=== PATIENT | male | born 1955 | race Caucasian/White ===

== ENCOUNTER → 2016-09-10 | Outpatient (CLI) | payer MEDICAID ==
[2016-09-10 14:16] LABS: BASOPHILS % (AUTO) 0 % (0-2); EOSINOPHILS # (AUTO) 0.3 10^3uL; EOSINOPHILS % (AUTO) 3 % (0-4); LYMPHOCYTES # (AUTO) 2.1 X10^3; MEAN CORPUSCULAR HEMOGLOBIN 27.1 PG (26.0-34.0); MEAN CORPUSCULAR VOLUME 82 FL (80-100); MEAN PLATELET VOLUME 8.9 FL (6.0-9.5); MONOCYTES # (AUTO) 1.2 X10^3; MONOCYTES % (AUTO) 10 % (3-11); NEUTROPHILS # (AUTO) 8.5 X10^3; NEUTROPHILS % (AUTO) 70 % (51-67); PLATELET COUNT 406 10^3uL (150-450)
== END ==
LOC: LAB 13:53
PROVIDERS: ATTEND Internal Medicine Hematology & Oncology
DX: D64.9 Anemia, unspecified (principal); D83.9 Common variable immunodeficiency, unspecified
CPT/HCPCS: 36415; 85025

== ENCOUNTER → 2016-09-11 | Outpatient (CLI) | payer MEDICAID ==
[~2016-09-11] VITALS: Ht 177.8 cm; Wt 81.6 kg
[~2016-09-11] MED LIST: ACETAMINOPHEN 325 MG TAB (TYLENOL) PO ONE; DEXAMETHASONE 10 MG/ML (DECADRON) VIAL INJ SCH; HYDROCORTISONE 100 MG/2 ML (Solu-CORTEF) VIAL IV PRN; IMMUNE GLOBULIN GAMMA IV ONE; NS FLUSH 10 ML PRN IV; NS FLUSH 3 ML PRN IV; [UNRECOGNIZED DRUG - OTHER] IV ONE; diphenhydrAMINE 50 MG/ML INJ (BENADRYL) IV ONE; diphenhydrAMINE 50 MG/ML INJ (BENADRYL) IV PRN; methylPREDNISolone 125 MG (Solu-MEDROL) VIAL IV PRN
[2016-09-11 10:38] VITALS: BP 115/76
--- NOTE | 2016-09-11 11:37 | NUR ---
.Patient tolerating infusion well; see vital signs
== END ==
LOC: EUOP 09:52
PROVIDERS: ATTEND Family Medicine
DX: D64.9 Anemia, unspecified (principal); D83.9 Common variable immunodeficiency, unspecified
CPT/HCPCS: 96365; 96367; 96375; A9270; J1100; J1200; J1459; J1569; 36000

== ENCOUNTER → 2016-10-08 | Outpatient (CLI) | payer MEDICAID ==
[2016-10-08 15:39] LABS: BASOPHILS % (AUTO) 0 % (0-2); EOSINOPHILS # (AUTO) 0.3 10^3uL; EOSINOPHILS % (AUTO) 3 % (0-4); LYMPHOCYTES # (AUTO) 2.3 X10^3; MEAN CORPUSCULAR HEMOGLOBIN 27.1 PG (26.0-34.0); MEAN CORPUSCULAR HGB CONC 33.3 g/dL (31.0-37.0); MEAN CORPUSCULAR VOLUME 81 FL (80-100); MEAN PLATELET VOLUME 8.9 FL (6.0-9.5); MONOCYTES # (AUTO) 0.7 X10^3; MONOCYTES % (AUTO) 6 % (3-11); NEUTROPHILS # (AUTO) 8.1 X10^3; NEUTROPHILS % (AUTO) 71 % (51-67); PLATELET COUNT 472 10^3uL (150-450); WHITE BLOOD COUNT 11.39 10^3uL (4.0-11.0)
== END ==
LOC: LAB 15:24
PROVIDERS: ATTEND Internal Medicine Hematology & Oncology
DX: D64.9 Anemia, unspecified (principal); D83.9 Common variable immunodeficiency, unspecified
CPT/HCPCS: 36415; 85025

== ENCOUNTER 2016-10-09 13:01 | Outpatient (RCR) | payer MEDICAID ==
[~2016-10-09] VITALS: Ht 177.8 cm; Wt 81646.6 kg
--- NOTE | 2016-10-09 13:49 | NUR ---
Pt rescheduled for Wednesday at 11am.
[2016-10-12] VITALS (8 sets, daily range): BP systolic 111–134; BP diastolic 67–86
[2016-10-12] MEDS ORDERED: ACETAMINOPHEN 325 MG TAB (TYLENOL) PO ONE (09:40)
[2016-10-12] MEDS ORDERED: methylPREDNISolone 125 MG (Solu-MEDROL) VIAL IV PRN (09:40)
[2016-10-12] MEDS ORDERED: diphenhydrAMINE 50 MG/ML INJ (BENADRYL) IV PRN (09:40)
[2016-10-12] MEDS ORDERED: HYDROCORTISONE 100 MG/2 ML (Solu-CORTEF) VIAL IV PRN (09:40)
[2016-10-12] MEDS ORDERED: diphenhydrAMINE 50 MG/ML INJ (BENADRYL) IV ONE (09:40)
[2016-10-12] MEDS ORDERED: NS FLUSH 3 ML PRN IV (09:40)
[2016-10-12] MEDS ORDERED: NS FLUSH 10 ML PRN IV (09:40)
[2016-10-12] MEDS ORDERED: DEXAMETHASONE 10 MG/ML (DECADRON) VIAL INJ SCH (09:40)
[2016-10-12] MEDS ORDERED: diphenhydrAMINE 50 MG/ML INJ (BENADRYL) IV SCH (09:41)
[2016-10-12] MEDS ORDERED: IMMUNE GLOBULIN GAMMA IV ONE ×3 (11:00)
[2016-10-12] MEDS ORDERED: [UNRECOGNIZED DRUG - OTHER] IV ONE ×3 (11:00)
--- NOTE | 2016-10-12 11:15 | NUR ---
Pt arrived in unit at 1115 per W/C with Robson OVALLES and was taken to Rm 341 for IVIG infusion. Pt is unable to hear but does talk and denies any needs at this time.
[2016-10-12] MEDS ORDERED: ACETAMINOPHEN 325 MG TAB (TYLENOL) PO SCH (11:20)
--- NOTE | 2016-10-12 11:25 | NUR ---
IV lock started in L hand with 20 g intracath times one attempt. Site had good blood return and flushed easily with 10 cc/ns. Site secured with tegaderm and tape. Pt then given pre meds of tylenol 650 po, Benadryl 25 mg IV and Dexamethasone 10 mg IV. Pt tolerated well.
--- NOTE | 2016-10-12 11:55 | NUR ---
IVIG started infusing per pump at 22ml/hr. Monitor remains on to take VS. Pt refused lunch and is texting on his phone.
--- NOTE | 2016-10-12 14:50 | NUR ---
IVIG infused 330 cc and IV site removed. Pt discharged to home with family friend. Pt escorted out to waiting car per W/C by Robson OVALLES. Pt denies any needs.
== END 2016-10-12 14:15 | disposition home or self-care (01) ==
LOC: EUOP 10-12 10:58 → ICU 10-12 11:01 → EUOP 10-12 14:15
PROVIDERS: ATTEND Internal Medicine Hematology & Oncology
DX: D64.9 Anemia, unspecified (principal); D83.9 Common variable immunodeficiency, unspecified
CPT/HCPCS: 96365; 96366; 96375; A9270; J1100; J1200; J1459

== ENCOUNTER → 2016-12-09 | Outpatient (CLI) | payer MEDICAID ==
[~2016-12-09] MED LIST changes: +AC500T PO; -ACETAMINOPHEN 325 MG TAB (TYLENOL) PO ONE; +ASPI-586 PO; +AZIT250T5 PO; +BENZ200C43 PO; +CEPH500C PO; +CLOP75TA3; +CYCL10TA45 PO; -DEXAMETHASONE 10 MG/ML (DECADRON) VIAL INJ SCH; +FLUT16SP NS; +GUAI400T58 PO; -HYDROCORTISONE 100 MG/2 ML (Solu-CORTEF) VIAL IV PRN; +IBP200T PO; -IMMUNE GLOBULIN GAMMA IV ONE; +MECL-115 PO; +MELO-249 PO; +NAPR250T34 PO; -NS FLUSH 10 ML PRN IV; -NS FLUSH 3 ML PRN IV; +OXYC1TAB7 PO; +OXYC1TAB87 PO; -[UNRECOGNIZED DRUG - OTHER] IV ONE; -diphenhydrAMINE 50 MG/ML INJ (BENADRYL) IV ONE; -diphenhydrAMINE 50 MG/ML INJ (BENADRYL) IV PRN; -methylPREDNISolone 125 MG (Solu-MEDROL) VIAL IV PRN
[2016-12-09 08:37] LABS: BASOPHILS % (AUTO) 0 % (0-2); EOSINOPHILS # (AUTO) 0.2 10^3uL; EOSINOPHILS % (AUTO) 2 % (0-4); LYMPHOCYTES # (AUTO) 1.5 X10^3; MEAN CORPUSCULAR HGB CONC 32.8 g/dL (31.0-37.0); MEAN CORPUSCULAR VOLUME 82 FL (80-100); MEAN PLATELET VOLUME 8.9 FL (6.0-9.5); MONOCYTES # (AUTO) 1.3 X10^3; MONOCYTES % (AUTO) 10 % (3-11); NEUTROPHILS # (AUTO) 10.2 X10^3; NEUTROPHILS % (AUTO) 77 % (51-67); PLATELET COUNT 440 10^3uL (150-450); WHITE BLOOD COUNT 13.35 10^3uL (4.0-11.0)
[2016-12-09 08:39] LABS: MEAN CORPUSCULAR HEMOGLOBIN 26.9 PG (26.0-34.0)
== END ==
LOC: LAB 08:20
PROVIDERS: ATTEND Internal Medicine Hematology & Oncology
DX: D80.3 Selective deficiency of immunoglobulin G [IgG] subclasses (principal); D83.9 Common variable immunodeficiency, unspecified; R59.1 Generalized enlarged lymph nodes; P83.9 Condition of the integument specific to newborn, unspecified
CPT/HCPCS: 36415; 85025

== ENCOUNTER 2016-12-10 14:15 | Outpatient (RCR) | payer MEDICAID ==
[~2016-12-10] VITALS: Ht 177.8 cm; Wt 73.5 kg
[~2016-12-10 14:15] MED LIST changes: -MELO-249 PO
[2016-12-10] MEDS ORDERED: IMMUNE GLOBULIN GAMMA IV ONE ×3 (14:35)
[2016-12-10] MEDS ORDERED: methylPREDNISolone 125 MG (Solu-MEDROL) VIAL IV PRN (14:35)
[2016-12-10] MEDS ORDERED: HYDROCORTISONE 100 MG/2 ML (Solu-CORTEF) VIAL IV PRN (14:35)
[2016-12-10] MEDS ORDERED: ACETAMINOPHEN 325 MG TAB (TYLENOL) PO ONE (14:35)
[2016-12-10] MEDS ORDERED: DEXAMETHASONE 10 MG/ML (DECADRON) VIAL IV ONE (14:35)
[2016-12-10] MEDS ORDERED: [UNRECOGNIZED DRUG - OTHER] IV ONE ×3 (14:35)
[2016-12-10] MEDS ORDERED: diphenhydrAMINE 50 MG/ML INJ (BENADRYL) IV ONE (14:35)
[2016-12-10] MEDS ORDERED: NS FLUSH 10 ML PRN IV (14:40)
[2016-12-10] MEDS ORDERED: NS FLUSH 3 ML PRN IV (14:40)
[2016-12-10] MEDS ORDERED: MELO-249 PO (14:44)
--- NOTE | 2016-12-10 16:59 | NUR ---
THIS RN RELIEVES STEVE RN FOR PT CARE. CL
--- NOTE | 2016-12-10 17:23 | NUR ---
PT DENIES ANY PROBLEMS AT THIS TIME. RESTING WITH EYES CLOSED WHEN THIS RN NOT IN THE PT ROOM. TEMP97.2 TYMP. 123/82 77 16 93% RA IV IGG RATE INCREASED TO 170/HR PER PROTOCOL PER IV PUMP. CL
--- NOTE | 2016-12-10 17:52 | NUR ---
PT DENIES ANY DIFFICULTIES AT THIS TIME. VS: 97.2 TEMPORAL 134/83 16 96% RA 77
--- NOTE | 2016-12-10 17:52 | NUR ---
PT IV IGG INFUSION INCREASED TO 207CC/HR PER PROTOCOL. CL
--- NOTE | 2016-12-10 18:30 | NUR ---
PT CONT TO DENY ANY DIFFICULTIES AT THIS TIME. VS: 97.3 TEMPORAL 147/83 81 94% RA 16 IV IGG RATE INCREASED TO 244CC/HR PER PROTOCOL PER PUMP. CL
--- NOTE | 2016-12-10 18:40 | NUR ---
PT INSTRUCTED IN WRITING NEXT APPT. INFUSIDION 01/07 @2PM HERE, LAB 02/06, DR CORLEY APPT 02/07 AM & INFUSION 02/07 @ 2PM. PT ASKS ABOUT DECEMBER LAB & OUR LAB CALLED TO DBL CHECK THAT THERE WAS NO SCHED LAB APPT IN DECEMBER. [facility] VERIFIES THEIR NEXT SCHED LAB IS 02/06/17. PT INSTRUCTED TO CALL DR [facility] TO SEE IF THEY DID INDEED WANT LAB IN DECEMBER PRIOR TO NEXT INFUSION. PT STATES REPEATEDLY THAT HE HAS TO HAVE LAB THE DAY BEFORE EVERY INFUSION & NOT STATING HE WILL CALL DR CORLEY. THIS RN THEN INFORMS PT HE SHOULD TRY TO CALL & THAT IN ADDITION, THIS RN WOULD ATTEMPT TO CALL TOMORROW (WED) OR IF THEY DO NOT ANSWER THEIR PHONES FOR SOME REASON, WILL ATTEMPT AGAIN ON WED. PT WRITES HIS PH # DOWN & STATES HE NEEDS SOMEONE TO "TEXT ONLY THE ANSWER" TO HIM. PT IS DEAF. WHEN M[employer]ED [employer] F[employer]ER ARRIVES FOR PT, HE ALSO STATES "I NEVER KNOW WHEN HIS APPTS ARE". SAME INFO GIVEN TO M[employer]ED [employer]ER. IV SITE DC'D W/TIP INTACT. PT DID CONT TO BLEED AT SITE AFTER 1 MIN OF PRESSURE HELD TO SITE SO 2 MIN EXTRA PRESSURE HELD W/NO FURTHER BLEEDING NOTED. M[employer]ED [employer] F[employer]ER & PT INFORMED TO LEAVE DSG ON FOR MINIMUM OF 30 MIN MORE. 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 CL
[2017-01-07] MEDS ORDERED: DEXAMETHASONE 10 MG/ML (DECADRON) VIAL IV SCH (14:00)
[2017-01-07] MEDS ORDERED: diphenhydrAMINE 50 MG/ML INJ (BENADRYL) IV SCH (14:00)
[2017-01-07] MEDS ORDERED: ACETAMINOPHEN 325 MG TAB (TYLENOL) PO SCH (14:00)
[2017-01-07] MEDS ORDERED: IMMUNE GLOBULIN GAMMA IV SCH (14:20)
--- NOTE | 2017-01-07 14:20 | NUR ---
Paqtient arrives to ICU room 341 for infusion 0f 10% IVIG. Patent is accompanied by son. Pt is A&Ox3.
[2017-01-07] MEDS ORDERED: D5W 1000 ML 1,000 ML IV ONE (14:27)
--- NOTE | 2017-01-07 14:40 | NUR ---
20 guage IV started to right back of hand x 1 attempt. IV flushed easily. Tegaderm dressing applied.
--- NOTE | 2017-01-07 14:50 | NUR ---
25 MG 0.5 ML BENADRYL IV, 10 MG 1 ML DECADRON IV, 650 MG TYLENOL PO GIVEN PROPHYLAXIS FOR POSSIBLE REACTION TO IVIG.
[2017-01-07 15:10] VITALS: BP 115/72
--- NOTE | 2017-01-07 15:25 | NUR ---
D5W AT 50 ML/HR AND 10% IVIG AT 23 ML/HR WERE STARTED PER PROTOCOL TO RIGHT HAND IV SITE.
--- NOTE | 2017-01-07 15:55 | NUR ---
INCREASE RATE TO 61 ML/HR . PATIENT DENIES NEEDS OR PROBLEMS.
--- NOTE | 2017-01-07 16:30 | NUR ---
IVIG RATE INCREASED AGAIN TO 97 ML/HR PER PROTOCOL. PATIENT TOLERATES WELL.
[2017-01-07 16:55] VITALS: BP 139/71
--- NOTE | 2017-01-07 16:59 | NUR ---
INCREASE INFUSION RATE TO 135 ML/HR PER PROTOCOL ON THE IVIG. PATIENT IS TOLERATING WELL.
[2017-01-07 17:32] VITALS: BP 134/76
--- NOTE | 2017-01-07 17:33 | NUR ---
INCREASE THE INFUSION RATE TO 173 ML/HR ON THE IVIG. PATIENT IS TOLERATING WELL WITH VITAL SIGNS STABLE.
--- NOTE | 2017-01-07 18:00 | NUR ---
INCREASE IVIG INFUSION RATE TO 211 ML/HR. PATIENT IS TOLERATING WELL.
[2017-01-07 18:40] VITALS: BP 137/72
--- NOTE | 2017-01-07 18:40 | NUR ---
INFUSION COMPLETED. 401 ML OF IVIG GIVEN. PATIENT TOLERATED COMPLETE INFUSION WITHOUT PROBLEMS. VITAL SIGNS REMAINED WNL.
--- NOTE | 2017-01-07 18:45 | NUR ---
DCD IV SITE. 20 GUAGE IV REMOVED WITH TIP INTACT. PRESSURE MAINTAINED TO SITE FOR 5 MINUTES. COBAN DRESSING APPLIED. INSTRUCTIONS GIVEN TO PATIENT FOR REMOVAL.
== END 2017-01-20 18:28 | disposition home or self-care (01) ==
LOC: EUOP 01-07 13:49 → ICU 01-07 13:54 → EUOP 01-07 18:45
PROVIDERS: ATTEND Internal Medicine Hematology & Oncology
DX: D64.9 Anemia, unspecified (principal); D83.9 Common variable immunodeficiency, unspecified
CPT/HCPCS: 36000; 96365; 96366; 96375; A9270; J1100; J1200; J1459

== ENCOUNTER → 2017-01-06 | Outpatient (CLI) | payer MEDICAID ==
[~2017-01-06] MED LIST changes: +MELO-249 PO
[2017-01-06 11:22] LABS: MEAN CORPUSCULAR HEMOGLOBIN 27.3 PG (26.0-34.0); MEAN CORPUSCULAR HGB CONC 33.1 g/dL (31.0-37.0); MEAN CORPUSCULAR VOLUME 82 FL (80-100); MEAN PLATELET VOLUME 8.8 FL (6.0-9.5); PLATELET COUNT 327 10^3uL (150-450); WHITE BLOOD COUNT 9.41 10^3uL (4.0-11.0)
[2017-01-06 11:40] LABS: ANISOCYTOSIS MODERATE; BAND NEUTROPHILS % 1 % (0-6); EOSINOPHILS % 4 % (0-4); LYMPHOCYTES # 2.4 #; MONOCYTES # 0.5 #; MONOCYTES % 5 % (3-11); RBC MORPH SEE REFERENCE (NORMAL); SEGMENTED NEUTROPHILS % 65 % (51-67); TOTAL CELLS COUNTED 100
== END ==
LOC: LAB 11:07
PROVIDERS: ATTEND Internal Medicine Hematology & Oncology
DX: D84.8 Other specified immunodeficiencies (principal); D83.9 Common variable immunodeficiency, unspecified; R59.1 Generalized enlarged lymph nodes; P83.9 Condition of the integument specific to newborn, unspecified
CPT/HCPCS: 36415; 85007; 85027